=== PATIENT | female | born 1985 | race Caucasian/White ===

== ENCOUNTER 2017-03-02 16:28 | Outpatient (CLI) | payer OTHER ==
[2017-03-02 16:57] LABS: BASOPHILS # (AUTO) 0.1 10^3/uL (0.0-0.1); BASOPHILS % (AUTO) 0.7 %; EOSINOPHILS # (AUTO) 0.2 10^3/uL (0.0-0.7); EOSINOPHILS % (AUTO) 2.3 %; HGB - HEMOGLOBIN 15.1 g/dL (12.0-16.0); LYMPHOCYTES # (AUTO) 2.5 10^3/uL (1.5-3.5); LYMPHOCYTES % (AUTO) 27.7 %; MEAN CORPUSCULAR HEMOGLOBIN 31.7 pg (27.0-31.0); MEAN CORPUSCULAR HGB CONC 35.3 g/dL (32.0-36.0); MEAN CORPUSCULAR VOLUME 89.8 fL (81.0-99.0); MEAN PLATELET VOLUME 7.3 fL (7.9-10.8); MONOCYTES # (AUTO) 0.7 10^3/uL (0.0-1.0); MONOCYTES % (AUTO) 7.7 %; NEUTROPHILS # (AUTO) 5.6 10^3/uL (1.5-6.6); NEUTROPHILS % (AUTO) 61.6 %; PLT - PLATELET COUNT 299 10^3/uL (130-450); RED BLOOD COUNT 4.77 10^6/uL (4.20-5.40); RED CELL DISTRIBUTION WIDTH 12.5 % (12.0-15.0)
[2017-03-02 18:00] LABS: FREE T3 3.87 pg/mL (2.5-3.9); THYROID STIMULATING HORMONE 2.43 uIU/mL (0.34-5.60)
[2017-03-02 18:02] LABS: FREE T4 (FREE THYROXINE) 0.73 ng/dL (0.58-1.64)
[2017-03-03 13:26] LABS: HIV AG/AB 4TH GEN NON-REACTIVE (NON-REACTIVE)
[2017-03-03 13:52] LABS: HEPATITIS B SURFACE ANTIGEN NON-REACTIVE (NON-REACTIVE); HEPATITIS C ANTIBODY NON-REACTIVE (NON-REACTIVE)
== END 2017-03-02 16:29 | disposition home or self-care (01) ==
LOC: LAB 16:28
PROVIDERS: ATTEND Nurse Practitioner Obstetrics & Gynecology
DX: Z36.9 Encounter for antenatal screening, unspecified (principal)
CPT/HCPCS: 36415; 81599; 84144; 84439; 84443; 84481; 85025; 86592; 86762; 86803; 86850; 86900; 86901; 87340; 87389

== ENCOUNTER 2017-03-30 16:00 | Outpatient (CLI) | payer OTHER | END 2017-03-30 16:01 | disposition home or self-care (01) | LOC: LAB.R 16:00 | PROVIDERS: ATTEND Registered Nurse | DX: O26.21 Pregnancy care for patient with recurrent pregnancy loss, first trimester (principal); L29.8 Other pruritus | CPT/HCPCS: 87070 ==

== ENCOUNTER 2017-04-01 16:41 | Outpatient (CLI) | payer OTHER ==
[2017-04-01 17:04] LABS: BASOPHILS # (AUTO) 0.1 10^3/uL (0.0-0.1); BASOPHILS % (AUTO) 1.4 %; EOSINOPHILS # (AUTO) 0.1 10^3/uL (0.0-0.7); HGB - HEMOGLOBIN 13.9 g/dL (12.0-16.0); LYMPHOCYTES # (AUTO) 0.8 10^3/uL (1.5-3.5); LYMPHOCYTES % (AUTO) 11.4 %; MEAN CORPUSCULAR HEMOGLOBIN 31.7 pg (27.0-31.0); MEAN CORPUSCULAR HGB CONC 35.1 g/dL (32.0-36.0); MEAN CORPUSCULAR VOLUME 90.3 fL (81.0-99.0); MEAN PLATELET VOLUME 7.3 fL (7.9-10.8); MONOCYTES # (AUTO) 0.7 10^3/uL (0.0-1.0); NEUTROPHILS # (AUTO) 5.2 10^3/uL (1.5-6.6); NEUTROPHILS % (AUTO) 75.2 %; PLT - PLATELET COUNT 241 10^3/uL (130-450); RED BLOOD COUNT 4.39 10^6/uL (4.20-5.40); RED CELL DISTRIBUTION WIDTH 12.6 % (12.0-15.0); WHITE BLOOD COUNT 6.9 x10^3/uL (4.8-10.8)
[2017-04-01 17:16] LABS: ALBUMIN 3.6 g/dL (3.2-5.5); ALBUMIN/GLOBULIN RATIO 1.1 (1.0-2.2); ALKALINE PHOSPHATASE 51 IU/L (42-121); ALT ALANINE AMINOTRANSFERASE 20 IU/L (10-60); AST ASPARTATE AMINOTRANSFERASE 23 IU/L (10-42); BILIRUBIN,TOTAL < 0.2 mg/dL (0.2-1.0); BUN - BLOOD UREA NITROGEN 9 mg/dL (6-20); CALCIUM 8.8 mg/dL (8.5-10.3); CARBON DIOXIDE - CO2 23 mmol/L (21-32); CHLORIDE 100 mmol/L (101-111); CREATININE 0.5 mg/dL (0.4-1.0); GFR - MDRD 143 (>89); GLUCOSE 81 mg/dL (70-100); SODIUM 134 mmol/L (135-145); TOTAL PROTEIN 6.9 g/dL (6.7-8.2)
== END 2017-04-01 16:42 | disposition home or self-care (01) ==
LOC: LAB 16:41
PROVIDERS: ATTEND Registered Nurse
DX: O26.21 Pregnancy care for patient with recurrent pregnancy loss, first trimester (principal); L29.8 Other pruritus; Z3A.12 12 weeks gestation of pregnancy
CPT/HCPCS: 36415; 80053; 82239; 85025

== ENCOUNTER 2017-04-08 21:01 | Outpatient (CLI) | payer OTHER ==
--- NOTE | 2017-04-09 12:16 | Ultrasound Report ---
TRANSVAGINAL OB ULTRASOUND: 04/09/2017 CLINICAL INDICATION: History of recurrent miscarriage, check cervix. TECHNIQUE: Transvaginal pelvic ultrasound performed for detailed evaluation. Real-time scanning performed and static images obtained. FINDINGS: There is a single viable intrauterine gestation. heart rate is 164 BPM. The cervix measures 3.4 cm. Trace fluid is seen in the endocervical canal, and trace free fluid is present in the cul-de-sac. IMPRESSION: A 3.4 CM CERVIX, WITH TRACE FLUID IN THE ENDOCERVICAL CANAL. TD: 04/09/2017 12:15
== END 2017-04-08 21:02 | disposition home or self-care (01) ==
LOC: DI 21:01
PROVIDERS: ATTEND Registered Nurse
DX: O26.22 Pregnancy care for patient with recurrent pregnancy loss, second trimester (principal)
CPT/HCPCS: 76817

== ENCOUNTER 2017-04-20 07:31 | Outpatient (CLI) | payer OTHER ==
--- NOTE | 2017-04-20 17:31 | Ultrasound Report ---
TRANSVAGINAL OB ULTRASOUND: 04/20/2017 CLINICAL INDICATION: History of miscarriage, check cervix. TECHNIQUE: As requested, limited transvaginal imaging was performed. COMPARISON: 04/08/2017 FINDINGS: There is a single viable intrauterine gestation present. heart rate is 150 BPM. Position is variable. The placenta is anterior, without evidence of previa. The cervix transvaginally measures 3.3 cm. Trace fluid is again noted in the endocervical canal. IMPRESSION: A 3.3 CM CERVIX. TD: 04/20/2017 17:21
== END 2017-04-20 07:32 | disposition home or self-care (01) ==
LOC: DI 07:31
PROVIDERS: ATTEND Registered Nurse
DX: O26.22 Pregnancy care for patient with recurrent pregnancy loss, second trimester (principal)
CPT/HCPCS: 76817

== ENCOUNTER 2017-04-22 17:04 | Outpatient (CLI) | payer OTHER | END 2017-04-22 17:05 | disposition critical access hospital (66) | LOC: EMS 17:04 | PROVIDERS: ATTEND Surgery | DX: O99.89 Other specified diseases and conditions complicating pregnancy, childbirth and the puerperium (principal); R10.9 Unspecified abdominal pain; M25.512 Pain in left shoulder; V43.52XA Car driver injured in collision with other type car in traffic accident, initial encounter; Y92.414 Local residential or business street as the place of occurrence of the external cause | CPT/HCPCS: A0425; A0429 ==

== ENCOUNTER 2017-04-22 17:26 | Emergency (ER) | payer OTHER ==
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
[2017-04-22 18:31] VITALS: BP 122/82
== END 2017-04-22 18:15 | disposition home or self-care (01) ==
LOC: EDUNIT# → ED 17:26
DX: Z04.1 Encounter for examination and observation following transport accident (principal); O26.92 Pregnancy related conditions, unspecified, second trimester; Z3A.16 16 weeks gestation of pregnancy
CPT/HCPCS: 99282; 99283

== ENCOUNTER 2017-04-30 17:42 | Outpatient (CLI) | payer OTHER ==
--- NOTE | 2017-04-30 18:39 | Ultrasound Report ---
EXAM: LIMITED OBSTETRICAL ULTRASOUND EXAM DATE: 04/30/2017 06:02 PM. CLINICAL HISTORY: CERVICAL SHORTENING, SECOND TRIMESTER. COMPARISON: 04/08/2017. TECHNIQUE: Real-time evaluation of the uterus with transvaginal probe, static image document ation. DATING: Established EGA 17 weeks 2 days with SAILAJA 10/06/2017. GENERAL EVALUATION Neal . Cardiac activity: 153 bpm. movement: Visualized. Presentation: Variable Placenta: Anterior position. Amniotic fluid: Normal. ANATOMY Grossly unremarkable. MATERNAL STRUCTURES Grossly unremarkable. Cervical length 3.3 cm. Fluid-filled, with lumen measuring 6.8 mm. IMPRESSION: 1. Neal live intrauterine with gestational age 17 weeks 2 days based on established ED D. 2. Cervical length 3.3 cm, with fluid-filled lumen as noted. SHAREEA The call report notification system was initiated by Dr. David Delgadillo at 18:29 hrs on 04/30/17. The above findings were discussed with Willie Jensen by Dr. David Delgadillo at 18:37 hrs on . Referring Provider Line: [phone] SITE ID: [id number]
== END 2017-04-30 17:43 | disposition home or self-care (01) ==
LOC: DI 17:42
PROVIDERS: ATTEND Registered Nurse
DX: O26.872 Cervical shortening, second trimester (principal)
CPT/HCPCS: 76817

== ENCOUNTER 2017-06-23 08:18 | Outpatient (CLI) | payer OTHER ==
[2017-06-23 10:06] LABS: HGB - HEMOGLOBIN 12.8 g/dL (12.0-16.0); MEAN CORPUSCULAR HGB CONC 35.2 g/dL (32.0-36.0); MEAN CORPUSCULAR VOLUME 91.1 fL (81.0-99.0); MEAN PLATELET VOLUME 7.5 fL (7.9-10.8); RED BLOOD COUNT 3.99 10^6/uL (4.20-5.40); WHITE BLOOD COUNT 9.7 x10^3/uL (4.8-10.8)
== END 2017-06-23 08:19 | disposition home or self-care (01) ==
LOC: LAB 08:18
PROVIDERS: ATTEND Registered Nurse
DX: O09.299 Supervision of pregnancy with other poor reproductive or obstetric history, unspecified trimester (principal)
CPT/HCPCS: 36415; 82950; 86850

== ENCOUNTER 2017-07-02 14:19 | Outpatient (CLI) | payer OTHER ==
[2017-07-02] MEDS ORDERED: BETAMETHASONE 30 MG/5 ML VIAL IM ONE (14:30)
[2017-07-02] MEDS ORDERED: BETAMETHASONE 30 MG/5 ML VIAL IM SCH (14:35)
[2017-07-02] MEDS ORDERED: BETAMETHASONE 30 MG/5 ML VIAL ONE (14:37)
== END 2017-07-02 14:39 | disposition home or self-care (01) ==
LOC: WFO 14:19 → FBP 14:20 → WFO 14:39
PROVIDERS: ATTEND Registered Nurse
DX: O34.32 Maternal care for cervical incompetence, second trimester (principal); Z3A.26 26 weeks gestation of pregnancy
CPT/HCPCS: 96372

== ENCOUNTER 2017-07-03 14:33 | Outpatient (CLI) | payer OTHER ==
[2017-07-03] MEDS ORDERED: BETAMETHASONE 30 MG/5 ML VIAL IM ONE (14:47)
[2017-07-03 15:09] VITALS: BP 120/67
== END 2017-07-03 15:25 | disposition home or self-care (01) ==
LOC: WFO 14:33
PROVIDERS: ATTEND Registered Nurse
DX: O34.32 Maternal care for cervical incompetence, second trimester (principal); Z3A.26 26 weeks gestation of pregnancy
CPT/HCPCS: 96372

== ENCOUNTER 2017-07-16 14:41 | Outpatient (CLI) | payer OTHER ==
--- NOTE | 2017-07-19 13:49 | Ultrasound Report ---
OB FOLLOWUP: 07/16/2017 CLINICAL INDICATION: Size/date discrepancy. TECHNIQUE: Real-time scanning was performed with benefits representative static images obtained. LAST MENSTRUAL PERIOD: 12/30/2016 Clinical Age: 28 weeks 2 days US Age: 29 weeks 6 days EFW Hadlock: 1395 grams EFW% Hadlock: 80% Heart Rate: 139 bpm EDC: 10/06/2017 US EDC: 09/25/2017 BPD Hadlock: 30 weeks 3 days; Mean mm 76 HC Hadlock: 30 weeks 2 days; Mean mm 277 AC Hadlock: 29 weeks 3 days; Mean mm 252 FL Hadlock: 29 weeks 1 days; Mean mm 55 Presentation: breech Placental Location: anterior Cervical Length: -- Amniotic Fluid: SARABJIT 21.3 cm; MVP 6.9 cm FINDINGS There is a single viable intrauterine gestation, in breech presentation. heart rate is 139 BPM. The placenta is anterior, without evidence of previa. Amniotic fluid volume is normal, with an SARABJIT of 21.3. By size, the fetus measures 29 weeks 6 days (28 weeks 2 days by LMP). By Hadlock method, estimated weight is 1395 grams, 80th percentile for gestational age. Two leiomyomas are noted in the uterus, the larger, right-sided, measuring 3.6 cm, and the smaller, anterior and to the left, measuring 3.1 cm. IMPRESSION: SINGLE VIABLE INTRAUTERINE GESTATION, WITH SIZE IN KEEPING WITH LMP DATING. ESTIMATED WEIGHT OF 1395 GRAMS, 80TH PERCENTILE FOR GESTATIONAL AGE. TD: 07/16/2017 15:48 MTDD
== END 2017-07-16 14:42 | disposition home or self-care (01) ==
LOC: DI 14:41
PROVIDERS: ATTEND Registered Nurse
DX: O26.842 Uterine size-date discrepancy, second trimester (principal); Z3A.00 Weeks of gestation of pregnancy not specified
CPT/HCPCS: 76816

== ENCOUNTER 2017-07-22 13:23 | Observation (INO) | payer OTHER ==
[2017-07-22] MEDS ORDERED: SODIUM CHLORIDE FLUSH 0.9% 10 ML SYRINGE ONE (13:38)
[2017-07-22] MEDS ORDERED: LACTATED RINGERS 1,000 ML IV ONE (13:39)
[2017-07-22 14:40] LABS: BILIRUBIN,URINE NEGATIVE (NEGATIVE); GLUCOSE, URINE (UA) NEGATIVE (NEGATIVE); KETONES,URINE (UA) NEGATIVE (NEGATIVE); LEUKOCYTE ESTERASE, URINE NEGATIVE (NEGATIVE); NITRITE,URINE NEGATIVE (NEGATIVE); OCCULT BLOOD,URINE NEGATIVE (NEGATIVE); PH,URINE 7.5 PH (5.0-7.5); PROTEIN,URINE NEGATIVE (NEGATIVE); UROBILINOGEN,URINE 0.2 (NORMAL) E.U./dL (NORMAL)
[2017-07-22 14:43] LABS: CLARITY,URINE CLEAR (CLEAR)
[2017-07-22 14:55] LABS: BACTERIA,URINE Rare /HPF (None Seen); RBC,URINE 0-5 /HPF (0-5); SQUAMOUS EPITHELIAL CELL,UR RARE Squamous (<= Few)
[2017-07-22 14:56] LABS: RUPTURE OF MEMBRANES PLUS NEGATIVE (NEGATIVE)
[2017-07-22] MEDS: INDOMETHACIN 25 MG CAPSULE PO SCH (15:01)
[2017-07-22] MEDS: NIFEdipine 10 MG CAPSULE PO PRN (15:02)
[2017-07-22 15:37] LABS: BASOPHILS # (AUTO) 0.1 10^3/uL (0.0-0.1); BASOPHILS % (AUTO) 0.5 %; EOSINOPHILS # (AUTO) 0.3 10^3/uL (0.0-0.7); EOSINOPHILS % (AUTO) 1.9 %; HGB - HEMOGLOBIN 12.5 g/dL (12.0-16.0); LYMPHOCYTES # (AUTO) 2.3 10^3/uL (1.5-3.5); LYMPHOCYTES % (AUTO) 15.8 %; MEAN CORPUSCULAR HEMOGLOBIN 30.9 pg (27.0-31.0); MEAN CORPUSCULAR HGB CONC 34.1 g/dL (32.0-36.0); MEAN CORPUSCULAR VOLUME 90.8 fL (81.0-99.0); MEAN PLATELET VOLUME 7.6 fL (7.9-10.8); MONOCYTES # (AUTO) 1.2 10^3/uL (0.0-1.0); MONOCYTES % (AUTO) 8.2 %; NEUTROPHILS # (AUTO) 10.5 10^3/uL (1.5-6.6); NEUTROPHILS % (AUTO) 73.6 %; PLT - PLATELET COUNT 252 10^3/uL (130-450); RED BLOOD COUNT 4.04 10^6/uL (4.20-5.40); RED CELL DISTRIBUTION WIDTH 13.1 % (12.0-15.0); WHITE BLOOD COUNT 14.3 x10^3/uL (4.8-10.8)
[2017-07-22] MEDS ORDERED: PROGESTERONE 200 MG VG SCH ×2 (17:00→21:00)
--- NOTE | 2017-07-22 17:54 | PREOP HISTORY & PHYSICAL ---
DATE OF SERVICE: 07/22/2017 Physician: Ralph Camacho MD IDENTIFICATION: The patient is a 32-year-old G3, P0-1-1-0 who is at 29.1 weeks. The patient has been dated in her by early visits as well as ultrasounds. She was first seen at 8.6 weeks. CHIEF COMPLAINT: Concerns about her cervix. HISTORY OF PRESENT ILLNESS: The patient developed contractions last night and was diverted to [facility] as the hospital here was on divert. At that point, she was seen and examined. She received 2 rounds of Procardia 20 mg total each time. She was given IV fluids of 500 of normal saline. Over the evening, her contractions settled down. She had an ultrasound which showed a cervix which was 1.1 cm. This was down from 1.8 cm. Her cervix had changed from a V formation to a U formation. She consulted the perinatologist at [facility] and they recommended she go home. Because of some questions about the condition of the membranes, she was requested to come back here. Her examination here shows a cervix without any bleeding. A cerclage is in place. The cerclage is not even fingertip at this time. However, the cervix is about 75% effaced. The presenting part is high in the pelvis. Her previous ultrasound showed the to be vertex. Following consulting with the perinatologist, Dr. Marla Francisco, it was decided to continue to follow her and observe her overnight, should contractions recur or rebound that she would be sent. The patient has received betamethasone on July 05. She has a history of a cerclage placement. She also has a history of losses at 16 and then again 22 weeks. PAST MEDICAL HISTORY: She denies any hypertensive, diabetic, cardiac or pulmonary disease. PAST SURGICAL HISTORY: Positive for a D and C following her 22-week miscarriage. She has also had a laparoscopic cystectomy, as well as left knee surgery. She has also had a cerclage placed during this . ALLERGIES: NONE KNOWN. CURRENT MEDICATIONS: She is taking Procardia XL 30 mg b.i.d. She is also taking progesterone 200 mg vaginally. She is taking vitamins. HABITS: The patient denies use of alcohol, tobacco, street or addictive drugs, or any tetrahydrocannabinol. SOCIAL HISTORY: The patient is and lives with her spouse. 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 REVIEW OF SYSTEMS: Negative at this time. PHYSICAL EXAMINATION GENERAL: A well-developed, well-nourished white female, in no acute distress at this time. HEENT: Pupils equal, round. Extraocular muscles are intact. HEART: Regular rate and rhythm without murmurs. LUNGS: Lung hutchison are clear without rales or wheezes. BACK: No spinal or CVA tenderness. PELVIC: Uterus is nontender at this time. The patient is having a few contractions, which appear to be widely spaced but are difficult to order picker externally. Speculum examination reveals a cervix with cerclage in place. The cervix is closed. There is no evidence of any membranes able to be visualized whatsoever. The presenting part palpates a high in the pelvis. Cultures for group B strep were obtained as well as a ROM Plus. FFN could not be obtained secondary to she had been instrumented in the vagina within 24 hours. IMPRESSION 1. A 32-year-old G3, P0-1-1-0 at 29.1 weeks by 8-week visit. 2. Cerclage for previous deliveries. 3. Possible early labor. PLAN: We will admit the patient, place on observation. We will administer Procardia 30 of XL b.i.d. with 10 mg p.o. p.r.n. breakthrough contractions. We will also put her on Indocin 25 mg p.o. b.i.d. We will continue with her vitamins as well as stool softener. Should her contractions return or become more extensive, we will need to transfer her to [facility] there are aware of her presence. TD: 07/22/2017 15:23 ALISSA
[2017-07-22] MEDS: DOCUSATE SODIUM 100 MG CAPSULE PO SCH (21:27)
[2017-07-22] MEDS: NIFEdipine ER 30 MG TABLET PO SCH (22:30)
[2017-07-23] MEDS: NIFEdipine 10 MG CAPSULE PO PRN (06:52)
[2017-07-23] MEDS ORDERED: PRENATAL VITAMIN TABLET PO SCH (08:00)
[2017-07-23] MEDS: DOCUSATE SODIUM 100 MG CAPSULE PO SCH (08:19)
[2017-07-23] MEDS: INDOMETHACIN 25 MG CAPSULE PO SCH (08:19)
[2017-07-23] MEDS ORDERED: LACTATED RINGERS 1,000 ML IV ONE (09:31)
[2017-07-23] MEDS ORDERED: CALCIUM GLUCONATE 1000 MG/10 ML VIAL ONE (09:31)
[2017-07-23 09:32] LABS: RUPTURE OF MEMBRANES PLUS POSITIVE (NEGATIVE)
[2017-07-23] MEDS ORDERED: SODIUM CHLORIDE FLUSH 0.9% 10 ML SYRINGE ONE (09:32)
[2017-07-23] MEDS ORDERED: MAGNESIUM SULFATE IN WATER 20 GM/500 ML IV.SOLN IV ONE (09:32)
[2017-07-23] MEDS: MAGNESIUM SULFATE 2 GRAM 4 GM/100 ML BAG IV ONE ×2 (09:40→09:51)
[2017-07-23] MEDS ORDERED: BETAMETHASONE 30 MG/5 ML VIAL IM ONE (09:44)
[2017-07-23] MEDS ORDERED: MAGNESIUM SULFATE 1 GM/2 ML VIAL IVP STA (09:46)
[2017-07-23 09:47] LABS: BASOPHILS # (AUTO) 0.1 10^3/uL (0.0-0.1); BASOPHILS % (AUTO) 0.5 %; EOSINOPHILS # (AUTO) 0.1 10^3/uL (0.0-0.7); EOSINOPHILS % (AUTO) 0.8 %; HGB - HEMOGLOBIN 13.9 g/dL (12.0-16.0); LYMPHOCYTES % (AUTO) 12.1 %; MEAN CORPUSCULAR HEMOGLOBIN 31.7 pg (27.0-31.0); MEAN CORPUSCULAR HGB CONC 35.1 g/dL (32.0-36.0); MEAN CORPUSCULAR VOLUME 90.3 fL (81.0-99.0); MEAN PLATELET VOLUME 7.6 fL (7.9-10.8); MONOCYTES # (AUTO) 1.1 10^3/uL (0.0-1.0); MONOCYTES % (AUTO) 6.8 %; NEUTROPHILS # (AUTO) 12.9 10^3/uL (1.5-6.6); NEUTROPHILS % (AUTO) 79.8 %; PLT - PLATELET COUNT 254 10^3/uL (130-450); RED BLOOD COUNT 4.38 10^6/uL (4.20-5.40); RED CELL DISTRIBUTION WIDTH 12.8 % (12.0-15.0); WHITE BLOOD COUNT 16.1 x10^3/uL (4.8-10.8)
[2017-07-23] MEDS: NIFEdipine ER 30 MG TABLET PO SCH (09:55)
[2017-07-23] MEDS ORDERED: AZITHROMYCIN 250 MG TABLET PO ONE (10:00)
[2017-07-23] MEDS ORDERED: MAGNESIUM SULFATE IN WATER 20 GM/500 ML IV.SOLN IV SCH (10:00)
[2017-07-23] MEDS ORDERED: AMPICILLIN 2 GM in SODIUM CHLORIDE 0.9% MINIBAG 100 ML IV SCH (10:00)
[2017-07-23] MEDS ORDERED: PENICILLIN G POTASSIUM 5,000,000 UNIT in SODIUM CHLORIDE 0.9% MINIBAG 100 ML IV ONE (10:00)
--- NOTE | 2017-07-23 10:03 | PROVIDER PROGRESS NOTE ---
Labor Progress Note - Uterine Monitoring Uterine Monitoring Mode: positive: External toco Contraction Frequency (min/apart): Q6min Contraction Intensity: positive: Moderate to strong Uterine Resting Tone: positive: Soft - Monitoring Monitor Mode: positive: External ultrasound Heart Rate Variability: positive: Moderate (6-25 bmp) Accelerations: positive: Present, 10x10 (=/32 wks) Decelerations: positive: None - Vaginal Exam Dilation (in cm): 0 Effacement (%): 50 Station: -3 - Labor Progress Note Labor Progress Note/Additional Text: 32 yo with a 29w2d IUP. PPROM at about 09:15 this AM. Gross rupture of membranes with slight meconium tinge. Odor of infection. 07/22/2017 WBC 14. S/p Marinelli cerclage at 17 weeks gestation. S/p Betamethasone series at 25 weeks. Admitted for overnight observation due to pelvic pain and contractions. Was on nifedipine 30 mg BID, indomethacin 25 mg BID Vertex presentation. Discussed case with Dr. Olga Quinn at [facility]. Dr. Quinn agrees to accept transfer. She recommends MgSO4, rescue dose of betamethasone. Will start Azithromycin 1000 mg x 1 as well as ampicillin 2 gm IV Q 6 hours. Transfer patient via [facility] to [facility]. Will recheck patient's cervix prior to take off. If too much tension from the cerclage, may tear the cervix.
[2017-07-23] MEDS ORDERED: diphenhydrAMINE INJ 50 MG/ML VIAL ONE (10:44)
[2017-07-23] MEDS ORDERED: diphenhydrAMINE INJ 50 MG/ML VIAL IVP SCH (10:45)
[2017-07-23 12:14] VITALS: BP 127/68
== END 2017-07-23 10:55 | disposition home or self-care (01) ==
LOC: WFO 13:23 → FBP 13:25 → WFO 14:59 → FBP 15:00 → WFO 07-23 10:55 → FBP 07-23 10:55
PROVIDERS: ADMIT Obstetrics & Gynecology; ATTEND Obstetrics & Gynecology
DX: O42.913 Preterm premature rupture of membranes, unspecified as to length of time between rupture and onset of labor, third trimester (principal); O26.23 Pregnancy care for patient with recurrent pregnancy loss, third trimester; O77.0 Labor and delivery complicated by meconium in amniotic fluid; Z3A.29 29 weeks gestation of pregnancy; Z79.899 Other long term (current) drug therapy; Z79.52 Long term (current) use of systemic steroids
CPT/HCPCS: 81001; 84112; 85025; 87797; 96365; 96372; 96375; 99213; 99218; A9270; J1200; J7120; 81003; 87086

== ENCOUNTER 2018-03-08 16:04 | Outpatient (CLI) | payer OTHER | END 2018-03-08 16:05 | disposition home or self-care (01) | LOC: LAB 16:04 | PROVIDERS: ATTEND Registered Nurse | DX: O92.70 Unspecified disorders of lactation (principal) | CPT/HCPCS: 36415; 84443 ==